=== PATIENT | male | born 1975 | race Caucasian/White ===

== ENCOUNTER 2016-05-22 08:28 | Emergency (ER) | payer OTHER ==
[~2016-05-22] VITALS: Ht 188 cm; Wt 110.0 kg
[~2016-05-22 08:28] MED LIST: CBCI IV.; CLC100 PO; CMD75 PO; LPR100 PO; LRS10 PO; NCY50 PO; NRN400 PO; NUTR-25 PO; RXC5 PO; SNK PO; VLTG EXT
[2016-05-22 08:32] VITALS: Ht 188 cm; Wt 110.0 kg
[2016-05-22] MEDS ORDERED: HYDR-5688 PO ×2 (08:39→15:13)
[2016-05-22] MEDS ORDERED: SODIUM CHLORIDE 0.9% 1000ML 500 ML IV ONE (09:00)
[2016-05-22 09:09] LABS: HEMATOCRIT 46.6 % (42-52); MEAN CELL VOLUME 79.5 fL (80-100); MEAN CORPUSCULAR HEMOGLOBIN 28.7 pg (25-34); MEAN CORPUSCULAR HGB CONC 36.1 g/dl (32-36); MEAN PLATELET VOLUME 9.4 fL (7.4-10.4); PLATELET COUNT 300 K/uL (130-400); RED BLOOD COUNT 5.86 M/uL (4.7-6.1); WHITE BLOOD COUNT 5.83 K/uL (4.8-10.8)
[2016-05-22 09:22] LABS: URINE APPEARANCE CLEAR (CLEAR); URINE BILIRUBIN NEG (NEG); URINE COLOR YELLOW; URINE EPITHELIAL CELL AUTO >30 /lpf (0-5); URINE NITRITE NEG (NEG); URINE SPECIFIC GRAVITY 1.021 (1.000-1.030); UROBILINOGEN NEG (NEG); ZZUR CULT IF INDIC CLEAN CATCH NO
[2016-05-22 09:24] LABS: MANUAL MICROSCOPIC REQUIRED? NO; REVIEW REQ? NO
[2016-05-22 09:27] LABS: BUN/CREATININE RATIO 15.9 (10-20); CALCIUM 9.2 mg/dl (8.5-10.1); CREATININE 0.96 mg/dl (0.60-1.40); POTASSIUM 4.2 mmol/L (3.5-5.1)
--- NOTE | 2016-05-22 10:27 | DIAGNOSTIC IMAGING REPORT ---
CHEST 2 VIEWS ROUTINE CLINICAL HISTORY: Right flank pain. COMPARISON STUDY: Chest radiograph August 25, 2014. FINDINGS: Lung volumes are normal. There is no pneumothorax or pleural effusion. There is no consolidation to suggest pneumonia. Cardiac size is at the upper limits of normal. Pulmonary vascularity is normal. IMPRESSION: No acute cardiopulmonary findings. Electronically signed by: Derrick Pollard M.D. 05/22/2016 10:26 AM Dictated Date/Time: 05/22/2016 10:26 AM
--- NOTE | 2016-05-22 11:49 | DIAGNOSTIC IMAGING REPORT ---
ABDOMEN AND PELVIS CT WITHOUT CONTRAST CT DOSE: 706.75 mGy.cm HISTORY: Pain. Infection. R flank pain, kidney stone TECHNIQUE: Multiaxial CT images of the abdomen and pelvis were performed without contrast. COMPARISON STUDY: 08/20/2014 Findings: Urinary tracts are unremarkable. There is no evidence for an obstructing urinary tract calculus. Bowel pattern is nonobstructive. Appendix is suboptimally seen although there is no significant right lower quadrant or pericecal inflammatory process. Mild chronic sigmoid diverticulosis. No evidence for acute diverticulitis. No free fluid within the pelvic cul-de-sac. Bladder is midline. Several small mesenteric nodes raising the possibility of mild adenitis. IMPRESSION: 1. No evidence for an obstructing urinary tract calculus. 2. Nonobstructive bowel pattern. 3. Mild mesenteric adenitis Electronically signed by: Anand Chatterjee M.D. 05/22/2016 11:47 AM Dictated Date/Time: 05/22/2016 11:41 AM
--- NOTE | 2016-05-22 12:26 | DIAGNOSTIC IMAGING REPORT ---
ORBIT RADIOGRAPHS 3 VIEWS HISTORY: Pre-MRI pre-MRI screening. COMPARISON: None. FINDINGS: There are no radiopaque foreign bodies identified within the orbits. IMPRESSION: No radiopaque foreign bodies identified within the orbits. Electronically signed by: Anand Chatterjee M.D. 05/22/2016 12:25 PM Dictated Date/Time: 05/22/2016 12:24 PM
[2016-05-22 13:47] VITALS: TEMP 36.6
--- NOTE | 2016-05-22 14:59 | DIAGNOSTIC IMAGING REPORT ---
THORACIC SPINE MRI WITH AND WITHOUT CONTRAST HISTORY: Pain. h/o epidural abscess, lumbar. R radiculopathy RUQ. TECHNIQUE: Multiplanar multisequence MRI of the thoracic spine was performed both before and after the intravenous administration of contrast. COMPARISON: 08/21/2014 FINDINGS: Mild degenerative intervertebral this changes again noted throughout. Posterior to the T11 vertebral body including components of the right T10 and T11 lateral recess is a nonenhancing soft tissue process creating a mild impact upon the lateral aspect of thecal sac. There is no direct involvement of the thoracic cord. This is similar to perhaps minimally increased in prominence of the prior study. It suggests the possibility of granulation tissue and residual from a prior epidural collection. A true postcontrast enhancing process is not identified. There is no significant compromise and narrowing of the neural foramina. Study otherwise are normal as are negative for significant disc herniation or spinal stenosis. IMPRESSION: 1. Small linear curvilinear extra dural soft tissue density lateral to the thoracic spine on the right at approximately T10-T11. 2. This shows no significant postcontrast enhancement and is similar to and are only slightly increased in size compared to the prior study of 2014. 3. Is most consistent with that of postinflammatory scar or other nonacute process. 4. No significant impact with the thoracic cord. 5. No significant disc herniation or component of spinal stenosis. Electronically signed by: Anand Chatterjee M.D. 05/22/2016 2:57 PM Dictated Date/Time: 05/22/2016 2:45 PM
[2016-05-22 15:20] VITALS: BP 145/99; PULSE 71; O2SAT 99
--- NOTE | 2016-05-23 19:48 | EMERGENCY ROOM VISIT NOTE ---
ED Visit Note First contact with patient: 09:03 Chief Complaint: Right-sided back pain. History of Present Illness: Mr. Hinojosa is a 41-year-old white male who ambulates into the ED complaining of right sided thoracic back pain inferior to the costovertebral angle. Historically patient reports he has a history of lumbar spinal abscess with sepsis from 2014. Patient reports his pain started approximately 24 hours ago. Since that time his pain has been constant. She describes his pain as a sharp stabbing sensation. There is minimal radiation around his abdomen towards the right mid axillary line. He rates his discomfort 5/10. His pain worsens with movement and palpation. He has not identified any alleviating factors related to the pain. He reports she's had 1 Vicodin tablet approximately 2 hours before he arrived in the emergency department with mild relief of his discomfort. He denies fevers, chills, sweats, skin eruptions, skin color changes, recent direct or repetitive trauma, chest pain, shortness of breath, abdominal pain, nausea, vomiting, urinary symptoms, hematuria, or constipation, diarrhea, rectal bleeding, black/tarry stools, rectal/genital paresthesias, bowel and bladder dysfunction, lower extremity weakness/numbness/tingling. Review of Systems: As noted above in history of present illness. All body systems were reviewed and found to be negative as noted above. Past Medical History: As previously noted. Current Medications: Patient denies. Allergies to Medications: Amoxicillin. Social History: Patient is currently employed; he lives alone and feels safe in his home environment; he admits to tobacco use and denies alcohol use. He also denies IV drug use. Physical Examination: Vital Signs: Date Time Temp Pulse Resp B/P Pulse Ox O2 Delivery O2 Flow Rate FiO2 05/22/16 15:20 71 18 145/99 99 Room Air 05/22/16 13:47 36.6 71 121/84 97 Room Air 05/22/16 08:32 36.5 97 18 129/90 97 Room Air GENERAL: 41-year-old male in mild to moderate distress due to pain, nontoxic- appearing, afebrile and hemodynamically stable. NEUROLOGICAL: Awake, alert and oriented to person, place and time. Answering questions appropriately and following commands. Normal gait. Good hand eye coordination. No focal motor sensory deficits. SKIN: Warm, dry and pink. No soft tissue eruptions or trauma noted. HEENT: Atraumatic and normocephalic. PERRLA. Sclera white and conjunctiva pink. No drainage from naris. Oral cavity moist and pink. Pharynx is nonerythematous or edematous. Speech normal. No lymphadenopathy. Trachea midline. No jugular venous distention. BACK: No tenderness over the bony thoracic and lumbar spine. Moderate tenderness over the right lower ribs and paraspinous musculature without bony deformity, bony crepitus or muscle spasm. Decreased range of motion in all movements at the waist. Negative straight leg raise test. No CVA tenderness. THORAX: Lungs sounds are clear to auscultation and equal bilaterally with symmetrical chest wall. No wheezing, rales or rhonchi. No crepitus, tenderness , subcutaneous air or deformities noted. HEART: Regular rate and rhythm. No gallops, rubs or murmurs are appreciated. ABDOMEN: Flat, soft and nontender. Positive bowel sounds in all quadrants. No guarding, rigidity or organomegaly. LOWER EXTREMITIES: Moves all extremities well on command and with purpose. All distal neurovascular statuses are intact and equal bilaterally. No calf tenderness or cords. Decreased deep tendon reflexes at the knees and Achilles. 5/5 muscle strength in all movements of the hips, knees, ankles and feet. He was able to distinguish light sensations through all dermatomes of the lower legs and feet. ED Course: Patient is assessed as noted above. Laboratory Testing: Test 05/22/16 08:45 05/22/16 08:50 Range/Units Urine Color YELLOW Urine Appearance CLEAR CLEAR Urine pH 5.0 4.5-7.5 Urine Specific [place] 1.021 1.000-1.030 Urine Protein NEG NEG Urine Glucose (UA) NEG NEG Urine Ketones NEG NEG Urine Occult Blood NEG NEG Urine Nitrite NEG NEG Urine Bilirubin NEG NEG Urine Urobilinogen NEG NEG Urine Leukocyte Esterase TRACE NEG Urine WBC (Auto) 1-5 0-5 /hpf Urine RBC (Auto) 0-4 0-4 /hpf Urine Hyaline Casts (Auto) 1-5 0-5 /lpf Urine Epithelial Cells (Auto) >30 0-5 /lpf Urine Bacteria (Auto) NEG NEG White Blood Count 5.83 4.8-10.8 K/uL Red Blood Count 5.86 4.7-6.1 M/uL Hemoglobin 16.8 14.0-18.0 g/dL Hematocrit 46.6 42-52 % Mean Corpuscular Volume 79.5 80-100 fL Mean Corpuscular Hemoglobin 28.7 25-34 pg Mean Corpuscular Hemoglobin Concent 36.1 32-36 g/dl RDW Standard Deviation 36.2 36.4-46.3 fL RDW Coefficient of Variation 12.6 11.5-14.5 % Platelet Count 300 130-400 K/uL Mean Platelet Volume 9.4 7.4-10.4 fL Erythrocyte Sedimentation Rate 20 0-14 mm/hr D-Dimer 190 0-500 ug/L FEU Sodium Level 138 136-145 mmol/L Potassium Level 4.2 3.5-5.1 mmol/L Chloride Level 106 98-107 mmol/L Carbon Dioxide Level 22 21-32 mmol/L Anion Gap 10.0 3-11 mmol/L Blood Urea Nitrogen 15 7-18 mg/dl Creatinine 0.96 0.60-1.40 mg/dl Est Creatinine Clear Calc Drug Dose 131.0 ml/min Estimated GFR () 111.8 Estimated GFR (Non- 96.4 BUN/Creatinine Ratio 15.9 10-20 Random Glucose 94 70-99 mg/dl Calcium Level 9.2 8.5-10.1 mg/dl C-Reactive Protein 0.98 0-0.29 mg/dl Chest X-Rays: Were read by myself and shows no acute infiltrates, effusions or pneumothorax. Normal heart silhouette and bony anatomy. Noncontrast Abdominal/Pelvic CT: Was reviewed by myself and read by the radiologist showing a nonobstructive bowel gas pattern, no significant right lower quadrant inflammatory processes, chronic diverticulosis without signs of diverticulitis, no free fluid or free air. Several small mesenteric nodes for possible while adenitis, no evidence of urinary tract calculus. Orbital X-Rays: Were reviewed by myself and read by the radiologist showing no radiopaque foreign bodies. Thoracic Spine MRI: Was reviewed by myself and read by the radiologist showing small linear curvilinear extradural soft tissue density lateral to the thoracic spine on the right at T10-T11, no significant post contrast enhancement, no significant impact on the thoracic cord, no significant disc herniation or spinal stenosis. Patient was hydrated with normal saline. He was offered pain medications multiple times and refused. Patient's case was reviewed with Dr. Pacheco; she independently assessed the patient agreed on diagnostic approach, treatment, disposition and plan. Clinical Impression: Acute thoracic back pain. Decision-Making: Initially my differential diagnosis I considered kidney stone, pyelonephritis, rib fracture, pleurisy, thoracic spine abscess and other causes. Disposition: Patient discharged home in stable condition; prior to departure he was reassessed and subjectively reported he was feeling the same. Plan: Patient was placed on a sliding pain scale of acetaminophen and [place]; appropriate narcotic precautions were discussed with the patient. Patient was encouraged to follow-up with his family physician for recheck in one to 2 days. Patient was encouraged return the ED for worsening/uncontrolled pain, fevers, extremity weakness/numbness/tingling, vomited or any new/concerning symptoms.
== END 2016-05-22 15:21 | disposition home or self-care (01) ==
LOC: C.EDB 08:31
DX: M54.6 Pain in thoracic spine (principal); Z72.0 Tobacco use